=== PATIENT | male | born 1980 | race Caucasian/White ===

== ENCOUNTER 2016-09-28 21:02 | Emergency (ER) | payer OTHER ==
[2016-09-28 21:09] VITALS: BP 145/81; PULSE 112; RESP 20; TEMP 98.2; O2SAT 95
--- NOTE | 2016-09-28 22:15 | EDPHY ---
H & P Time Seen by Provider: 09/28/16 22:08 HPI/ROS: CHIEF COMPLAINT: Laceration to left thumb HISTORY OF PRESENT ILLNESS: The patient is a 36 y/o male complaining of left thumb pain after cutting it this afternoon. He accidentally "cut off the tip" of his thumb with a uri while at work. He reports it continued to bleed for 4 hours so he came into the ED. No other injuries. He denies pertinent medical history. He is unsure of his tetanus status. Past Medical/Surgical History: Denies Social History: Smoker. Injury occurred at work. Smoking Status: Light smoker Physical Exam: General Appearance: Alert, pleasant Skin: 1cm x 0.5cm skin avulsion to distal tip of left thumb Vascular: normal capillary refill Neurological: motor/sensory intact Constitutional: Initial Vital Signs Temperature (C) 36.8 C 09/28/16 21:07 Heart Rate 112 H 09/28/16 21:07 Respiratory Rate 20 09/28/16 21:07 Blood Pressure 145/81 H 09/28/16 21:07 O2 Sat (%) 95 09/28/16 21:07 Allergies/Adverse Reactions: No Known Allergies Allergy (Unverified 09/28/16 21:09) Home Medications: Medication Instructions Recorded NK [No Known Home Meds] 09/28/16 Medical Decision Making ED Course/Re-evaluation: Tetanus vaccination administered. Procedure: Laceration repair. Verbal consent was obtained from the patient. The 1cmx0.5cm skin avulsion to the left distal thumb was anesthetized using lidocaine, digital block. The wound was cleaned with standard ED protocol. No tendon or austin injury was identified. The wound was covered with Surgicel and a pressure bandage. The wound repair was simple. The procedure was performed by myself, Dr. Bai. Patient will be discharged with a pressure bandage to remain on for the next 24 hours. He understands he could have some loss of sensation in the fingertip as it heals. He has been instructed to follow up with the appropriate clinic as directed by his HR department for workman's comp. He's also been referred to hand surgery if needed for severe ongoing symptoms. He is comfortable with this plan. - Data Points Medications Given: Discontinued Medications Diphtheria/Tetanus/Acell Pertussis (Boostrix) 0.5 ml IM .ONCE ONE Stop: 09/28/16 22:18 Last Admin: 09/28/16 22:23 Dose: 0.5 ml Departure - Departure Disposition: Home, Routine, Self-Care Clinical Impression: left thumb Fingertip avulsion Qualifiers: Encounter type: initial encounter Qualified Code(s): S61.209A - Unspecified open wound of unspecified finger without damage to nail, initial encounter Condition: Good Instructions: Skin Avulsion (ED) Additional Instructions: 1. Keep pressure bandage on for the next 24 hours. 2. Use Tylenol or ibuprofen as directed on the packaging if needed for pain over the next week. 3. Follow up with the appropriate clinic as directed by your HR department if you pursue this as a workman's comp injury. 4. You've also been referred to Dr. Jimenez, hand specialist, to follow up with if needed for severe ongoing pain or other symptoms over the next few weeks. Referrals: NONE *PRIMARY CARE P,. [Primary Care Provider] - As per Instructions Chicho Jimenez MD [Medical Doctor] - As per Instructions Report Scribed for: Chitra Bai Report Scribed by: Yudelka Acevedo Date of Report: 09/28/16 Time of Report: 22:15 Physician Review and Approval Statement: 09/28/16 22:15 Portions of this note were transcribed by a medical registrar. I personally performed a history, physical exam, medical decision making, and confirmed accuracy of information the transcribed note.
[2016-09-28] MEDS ORDERED: TDAP ADULT 0.5 ML INJ (BOOSTRIX) IM ONE (22:17)
== END 2016-09-28 22:28 | disposition home or self-care (01) ==
PROC: 0HQGXZZ Repair Left Hand Skin, External Approach (ICD-10-PCS; principal; 2016-09-28)
DX: S61.002A Unspecified open wound of left thumb without damage to nail, initial encounter (principal); F17.200 Nicotine dependence, unspecified, uncomplicated; Z23 Encounter for immunization; W27.0XXA Contact with workbench tool, initial encounter; Y92.69 Other specified industrial and construction area as the place of occurrence of the external cause; Y99.8 Other external cause status; Y93.89 Activity, other specified